=== PATIENT | female | born 1995 | race Caucasian/White ===

== ENCOUNTER 2023-01-03 05:29 | Emergency (ER) | payer OTHER ==
[~2023-01-03] VITALS: Ht 165.1 cm; Wt 86.0 kg
[2023-01-03] MEDS ORDERED: ONDANSETRON HCL 4MG/2ML INJ IV STA (05:52)
[2023-01-03] MEDS ORDERED: SODIUM CHLORIDE 0.9% 1,000 ML IV ONE (06:00)
[2023-01-03 06:11] LABS: BASOPHILS % 0.3 % (0.0-2.0); EOSINOPHILS % 0.6 % (0.0-5.0); HEMATOCRIT. 35.6 % (36.0-48.0); HEMOGLOBIN. 11.3 g/dL (12.0-16.0); LYMPHOCYTES % 24.1 % (20.0-50.0); MEAN CORPUSCULAR HEMOGLOBIN 25.4 pg (28.0-32.0); MEAN CORPUSCULAR VOLUME 79.8 fL (81.0-99.0); MEAN PLATELET VOLUME 8.1 fl (7.4-10.4); MONOCYTES % 9.5 % (2.0-8.0); NEUTROPHILS % 65.5 % (40.0-76.0); PLATELET 428 x1000/uL (130-400); RED BLOOD CELL COUNT 4.47 mill/uL (4.2-5.4); RED CELL DISTRIBUTION WIDTH 16.7 % (11.6-14.6)
[2023-01-03 06:22] LABS: CHLORIDE 106 mEq/L (98-107)
[2023-01-03 06:43] LABS: HCG SCREEN NEGATIVE
[2023-01-03] MEDS ORDERED: ONDANSETRON HCL 4MG/2ML INJ IV NR (09:15)
[2023-01-03 09:35] VITALS: BP 112/64
[2023-01-03] MEDS ORDERED: METO-293 PO (10:37)
== END 2023-01-03 11:14 | disposition home or self-care (01) ==
LOC: ER 05:29
DX: R11.2 Nausea with vomiting, unspecified (principal)
CPT/HCPCS: 36415; 80053; 84703; 85025; 96361; 96374; 99283; J2405; J7030